=== PATIENT | female | born 1930 | race Hispanic/Latino ===

== ENCOUNTER 2017-04-30 19:53 | Inpatient (IN) | payer MEDICARE, MEDICAID ==
[~2017-04-30] VITALS: Ht 124.5 cm; Wt 70.3 kg
[~2017-04-30 19:53] MED LIST: AMLO10TA3 PO; ASPI325T32 PO; ATEN25TA PO; BACL10TA PO; CHOL100043 PO; DULO20CA PO; FENT1PAT7 TOP; GABA-502 PO; LISI40TA PO; METF10002 PO; MULT-1018 PO; NITR0.4T38 SL; OMEP-113 PO; PRAV20TA2 PO; TIZA4CAP8 PO
[2017-04-30 20:19] VITALS: BP 161/74; PULSE 93; RESP 16; O2SAT 99
[2017-04-30] MEDS ORDERED: 0.9% Sodium Chloride 1,000 ML IV ONE ×2 (20:29→22:00)
[2017-04-30] MEDS ORDERED: Ondansetron 2 mg/mL 2 mL Inj IVPUSH ONE (20:30)
[2017-04-30] MEDS ORDERED: HYDROmorphone 0.5 mg/0.5 mL iSecure Syringe IVPUSH PRN (20:30)
[2017-04-30 21:08] LABS: BASOPHILS % (AUTO) 0.2 % (0-3); EOSINOPHILS % (AUTO) 2.5 % (0-5); MONOCYTES % (AUTO) 4.8 % (4-12); Mean Corpuscular Hemoglobin 26.1 pg (27.0-35.0); Mean Corpuscular Volume 82.3 fL (81-100); NEUTROPHILS % (AUTO) 66.5 % (40-74); Platelet Count 294 bil/L (150-400)
[2017-04-30 21:23] LABS: INR 1.05 ratio
[2017-04-30 21:36] LABS: Magnesium 1.9 mg/dL (1.6-2.6)
[2017-04-30 21:37] LABS: APPEARANCE,URINE CLOUDY (CLEAR,HAZY); COLOR,URINE STRAW (YELLOW); OCCULT BLOOD,URINE SMALL (NEGATIVE); PH,URINE 5.5 (5.0-8.0)
[2017-04-30 21:38] LABS: UROBILINOGEN,URINE NORMAL (NORMAL)
[2017-04-30] MEDS ORDERED: Alum-Mag Hydrox-Simeth 30 mL Suspension PO PRN (22:00)
[2017-04-30] MEDS ORDERED: cefTRIAXone Inj 1,000 MG in Dextrose 5% Minibag Plus 50 ML IV ONE (22:00)
--- NOTE | 2017-04-30 22:09 | ED.REPORT ---
HPI-General Illness Date of Service Apr 30, 2017 ED Provider: Saud Pryor MD Pt is an 87 year old female with a hx of DM, and HTN presenting to the ED complaining of abdominal cramping and bloating onset a few days ago, worsened yesterday. Associated symptoms include subjective fever, chills, diaphoresis and diarrhea. Denies dysuria, increased urination, vomiting, SOB or cough. Pt denies hx of abd surgery. Pt lives in her own apartment but her daughter cares for her. Nursing Notes Stated Complaint: ABDOMINAL PAIN, DIARRHEA, CHILLS, HEADACHE/FROM UC Chief Complaint: General Complaint Nursing Notes Reviewed: Yes Allergies: Coded Allergies: No Known Allergies (Verified , 04/30/17) Scheduled Amlodipine (Amlodipine) 10 Mg Tablet 10 MG PO NOON Aspirin (Aspirin) 325 Mg Tablet.dr 325 MG PO PM Atorvastatin Calcium (Atorvastatin Calcium) 20 Mg Tablet 20 MG PO HS Carvedilol (Carvedilol) 12.5 Mg Tablet 12.5 MG PO BIDWM Cholecalciferol (Vitamin D3) (Vitamin D) 1,000 Unit Tablet 2,000 UNIT PO AM Cyanocobalamin (Cyanocobalamin Injection) 1,000 Mcg/1 Ml Vial 1,000 MCG IM Monthly Duloxetine (Cymbalta) 30 Mg Capsule.dr 30 MG PO DAILY Gabapentin (Gabapentin) 300 Mg Capsule 600 MG PO AM, NOON Gabapentin (Gabapentin) 300 Mg Capsule 900 MG PO HS Lidocaine (Lidoderm) 700 Mg Adh..patch 1 PATCH TP DAILY Lisinopril (Lisinopril) 40 Mg Tablet 40 MG PO DAILY Lisinopril (Lisinopril) 20 Mg Tablet 20 MG PO HS Metformin (Metformin) 1,000 Mg Tablet 1,000 MG PO BIDWM Scheduled PRN Nitroglycerin SL (Nitroglycerin SL) 0.4 Mg Tab.subl 0.4 MG SL PRN PRN PRN For Chest Pain oxyCODONE-Acetaminophen 5-325 mg (oxyCODONE-Acetaminophen 5-325 mg) 1 Each Tablet 1-2 TAB PO BID PRN PRN For Pain General Time Seen by MD: 20:29 Chief Complaint Abdominal pain Hx Obtained From: Patient Arrived By: Walk-in Sudden in Onset?: No Onset Occurred: 3 days ago Symptom Duration: Since onset Location: : Abdomen Severity: Current: Moderate Severity: Maximum: Severe Recent Healthcare: No recent doctor visit, No recent hospitalization Similar Sx Previous: No Past Medical History Past Medical History Reports: Diabetes mellitus, Hypertension Past Surgical History bilateral lower leg amputation Smoking History Former Smoker Ambulatory Status Independent Review of Systems Full Review of Systems Constitutional: Reports: Chills, Fever Respiratory: Reports: Non-productive cough, Denies: Shortness of breath GI: Reports: Abdominal pain, Diarrhea, Denies: Vomiting Female: Denies: Dysuria, Urinary frequency Skin: Reports Diaphoresis Complete sys rev & neg: except as marked. Physical Exam Vital Signs Vital Signs Date Time Temp Pulse Resp B/P Pulse Ox O2 Delivery O2 Flow Rate FiO2 04/30/17 20:19 36.8 93 16 161/74 99 Room Air Initial VS: Reviewed General/Constitutional: Well-developed, Well-nourished ENT: Mucous membranes moist, Conjunctiva normal, No scleral icterus Neck: Supple, Non-tender, Full range of motion Respiratory: Breath sounds normal, Clear to auscultation, No respiratory distress Cardiovascular: Regular rate & rhythm, Heart sounds normal, Intact distal pulses Extremities: Vascular intact, Neuro intact, No swelling, No tenderness Skin: Warm, Dry, No cyanosis Neurologic: Alert, Oriented, Nonfocal Psychiatric: Mood/affect normal, Behavior normal, Normal thought content Head / Eyes: Atraumatic, Normocephalic, PERRL (3mm), EOMI Abdomen: Atraumatic, Soft, Non-tender Bowel Sounds / Distention: Positive: Distention mild Interpretation & Diagnostics Lab Results Interpretation Result Diagram: 04/30/17210404/30/17 210 Test 04/30/17 21:05 04/30/17 21:15 White Blood Count 10.0th/mm3 (3.8-10.1) Red Blood Count 3.10mil/mm3 (3.90-5.20) Hemoglobin 8.1g/dL (12.0-15.6) Hematocrit 25.5% (35.0-46.0) Mean Corpuscular Volume 82.3fL (81-100) Mean Corpuscular Hemoglobin 26.1pg (27.0-35.0) Mean Corpuscular Hemoglobin Concent 31.8% (32.0-37.0) Red Cell Distribution Width 15.2% (12.3-15.4) Platelet Count 294bil/L (150-400) Neutrophils (%) (Auto) 66.5% (40-74) Lymphocytes (%) (Auto) 25.8% (14-46) Monocytes (%) (Auto) 4.8% (4-12) Eosinophils (%) (Auto) 2.5% (0-5) Basophils (%) (Auto) 0.2% (0-3) Prothrombin Time 11.3sec (8.1-12.5) Prothromb Time International Ratio 1.05ratio Sodium Level 134mEq/L (134-144) Potassium Level 5.1mEq/L (3.5-5.2) Chloride Level 98mEq/L (97-108) Carbon Dioxide Level 18mmol/L (18-29) Blood Urea Nitrogen 88mg/dL (8-27) Creatinine 1.29mg/dL (0.57-1.00) Estimat Glomerular Filtration Rate 56mL/min (>59) Glucose Level 206mg/dL (60-99) Calcium Level 8.6mg/dL (8.5-10.1) Magnesium Level 1.9mg/dL (1.6-2.6) Total Bilirubin 0.2mg/dL (0.0-1.2) Aspartate Amino Transf (AST/SGOT) 11U/L (0-50) Alanine Aminotransferase (ALT/SGPT) 8U/L (0-32) Alkaline Phosphatase 95U/L (25-165) Total Protein 7.2g/dL (6.4-8.4) Albumin 3.4g/dL (3.4-5.0) Lipase 66U/L (13-60) Hold Vickers Top Tube Received (Received) Urine Color Straw (YELLOW) Urine Appearance Cloudy (CLEAR,HAZY) Urine pH 5.5 (5.0-8.0) Urine Specific [place] 1.020 (1.003-1.035) Urine Protein 100mg/dL (NEG,TRACE) Urine Glucose (UA) Negativemg/dL (NEGATIVE) Urine Ketones Negativemg/dL (NEGATIVE) Urine Occult Blood Small (NEGATIVE) Urine Nitrite Positive (NEGATIVE) Urine Bilirubin Negative (NEGATIVE) Urine Urobilinogen Normalmg/dL (NORMAL) Urine Leukocyte Esterase Moderate (NEGATIVE) Urine RBC 0-2/hpf (0-2) Urine WBC 6-10/hpf (0-5) Urine Epithelial Cells Few/hpf (NONE-MOD) Urine Crystals None seen (NONE SEEN) Urine Bacteria Many/hpf (NONE-FEW) Urine Hyaline Casts None/lpf (NONE) Urine Granular Casts None seen (NONE SEEN) Urine Waxy Casts None seen (NONE SEEN) Urine Red Blood Cell Casts None seen (NONE SEEN) Urine White Blood Cell Casts None seen (NONE SEEN) Urine Mucus None seen (None Seen) Urine Trichomonas None seen (NONE SEEN) Urine Yeast None (NONE SEEN) Urinalysis Comment None Urine Culture Reflexed Indicated CT Abd / Pelvis Interpretation CONCLUSION: Diverticula without evidence of diverticulitis. Nonobstructing renal stones bilaterally. This report was transmitted to the emergency room at 04/30/2017 - 10:34:23 PM PDT. Study type: Abdominal CT no contrast Interpretation / Wet Read by: Interpret - Radiologist Re-Eval/Medical Decision Med Decision/Clinical Course The patient is an 87-year-old female who presents to the emergency department with multiple vague complaints including abdominal cramping, bloating, diarrhea and fatigue over the last several days. Here in the emergency department the patient is slightly hypertensive though otherwise afebrile with stable vital signs and examination as above. Laboratory studies were notable as below: Urine dip shows 2+ leukocytes, positive nitrites and large blood. CBC no leukocytosis, hematocrit 25.5 which is down from previous baseline in low 30s. Coags normal. CMP notable for acute renal failure with BUN of 88 and creatinine of 1.29 this is new onset. No significant electrolyte abnormalities. Lipase 66. CT scan of the abdomen and pelvis was obtained demonstrated no evidence of bowel obstruction or acute surgical process. The patient appeared quite dehydrated and is noted to have urinary tract infection. She was treated with IV ceftriaxone for her UTI and received 2 L of saline. Patient is noted to have evidence of acute renal failure and cause thereof is not completely clear at this time. This may be related to her profound dehydration though he will likely require further workup especially if it does not improve with fluid resuscitation. Patient is also noted to have decreasing hematocrit. She denies any melena or bloody stool. The etiology of her progressive anemia is unclear or require further investigation. The patient was discussed with the admitting hospitalist accepted for further management. She was transferred in stable condition. Time of Eval: 22:20 Patient Status: Condition improved Re-Evaluation/Progress Note: Discussed plan for admission. Pt understands and agrees. Consultation : Referral / Consult Name: Yudelka Ruiz DO Consulted With: Hospitalist Call Returned at: 22:52 Marine Steward: Will see patient, Agrees with plan, Accepts admit Counseled Regarding: Diagnosis, Lab results, Need for admission Discharge & Departure Primary Impression: Acute renal failure Acute renal failure type: unspecified Qualified Code: N17.9 - Acute kidney failure, unspecified Additional Impressions: UTI (urinary tract infection) Urinary tract infection type: site unspecified Hematuria presence: without hematuria Qualified Code: N39.0 - Urinary tract infection, site not specified Anemia Anemia type: unspecified type Qualified Code: D64.9 - Anemia, unspecified Severe dehydration Abdominal pain Abdominal location: unspecified location Qualified Code: R10.9 - Unspecified abdominal pain Diarrhea Diarrhea type: unspecified type Qualified Code: R19.7 - Diarrhea, unspecified Hypertension Hypertension type: unspecified secondary hypertension Qualified Code: I15.9 - Secondary hypertension, unspecified Disposition: ADMITTED TO HOSPITAL Discharge Condition All VS Reviewed: Yes Condition: Improved Referrals: Amirah Edouard MD (PCP) Crit Care Except Billable Proc Time Spent: 105-134 minutes Services Performed: Patient management by me, Time spent at bedside, Reviewing test results, Reviewing imaging, Discussing patient care, Documentation in record, Time with fam/surrogate Critical Care Notes: Severe dehydration, acute renal failure, volume resuscitation Scribe Attestation Portions of this note were transcribed by Caty Wong. I, Dr. Pryor personally performed the history, physical exam and medical decision-making; I reviewed and confirmed the accuracy of the information in the transcribed note. Signed by: Sarah Foster, 04/30/2017. copies to: Amirah Edouard MD, Beck O MD Apr 30, 2017 22:09 CATY WONG Apr 30, 2017 22:25
[2017-04-30] MEDS ORDERED: ATOR20TA65 PO (22:58)
[2017-04-30] MEDS ORDERED: OXYC1TAB24 PO (22:58)
[2017-04-30] MEDS ORDERED: CYA1000I IM (22:58)
[2017-04-30] MEDS ORDERED: DULO30CA PO (22:58)
[2017-04-30] MEDS ORDERED: LIDO700A10 TP (22:58)
[2017-04-30] MEDS ORDERED: CARV12.52 PO (22:58)
[2017-04-30] MEDS ORDERED: LISI-567 PO (22:58)
[2017-04-30] MEDS: Ondansetron 2 mg/mL 2 mL Inj IVPUSH PRN (23:19)
[2017-05-01] VITALS (16 sets, daily range): BP systolic 132–170; BP diastolic 59–83; PULSE 83–113; RESP 9–24; O2SAT 94–99
--- NOTE | 2017-05-01 01:12 | PCM.HPMED ---
Subjective Date of Service Apr 30, 2017 Primary Provider: Admitting Physician: Yudelka Ruiz DO Primary Care Physician: Amirah Edouard MD Attending Physician: Yudelka Ruiz DO Admit Status: From the Emergency Department Chief Complaint: Abdominal Pain History of Present Illness: Patient is an 87-year-old female that presented to the emergency department complaining of abdominal cramping and bloating that started a few days ago and worsened yesterday. She has a history of diabetes and hypertension. History was obtained from the patient and translated by the nurse, Purnima and with outpatient chart review Patient states that she developed generalized abdominal pain on Friday (6 days ago) which worsened yesterday. It has since improved with an increase in water consumption. She also admits to 3 episodes of diarrhea yesterday and 2 today. She states that the diarrhea is improving. Patient reports previous UTI several years ago. She states that she did not drink much water the day before symptoms started. Patient admits subjective fever, chills, diaphoresis, diarrhea, and nausea Patient denies dysuria, increased urination, vomiting, shortness of breath, hematochezia Review of Systems: Complete ROS was performed and pertinent positives and negatives included in the history of present illness. All other findings were negative. Allergies Coded Allergies: No Known Allergies (Verified , 04/30/17) Home Medications Amlodipine (Amlodipine) 10 Mg Tablet 10 MG PO NOON Aspirin (Aspirin) 325 Mg Tablet. 325 MG PO PM Atenolol (Atenolol) 25 Mg Tablet 25 MG PO BID Baclofen (Baclofen) 10 Mg Tablet 5 MG PO TID Cholecalciferol (Vitamin D3) (Vitamin D) 1,000 Unit Tablet 2,000 UNIT PO AM Duloxetine (Cymbalta) 20 Mg Capsule 20 MG PO AM Fentanyl 25 mcg/hr Patch (Fentanyl 25 mcg/hr Patch) 1 Each Patch.td72 1 EACH TOP Q3D Gabapentin (Gabapentin) 300 Mg Capsule 600 MG PO AM, NOON Gabapentin (Gabapentin) 300 Mg Capsule 900 MG PO HS Lisinopril (Lisinopril) 40 Mg Tablet 40 MG PO BID Metformin (Metformin) 1,000 Mg Tablet 1,000 MG PO BIDWM Multivitamin (Multi Vitamin Daily) 1 Each Tablet 1 EACH PO NOON Omeprazole Magnesium (Omeprazole) 20 Mg Capsule.dr 20 MG PO PM Pravastatin (Pravastatin) 20 Mg Tablet 20 MG PO PM Nitroglycerin SL (Nitroglycerin SL) 0.4 Mg Tab.subl 0.4 MG SL PRN PRN PRN For Chest Pain Tizanidine (Tizanidine) 4 Mg Capsule 4 MG PO Q8 PRN PRN For Pain PMH 1. Diabetes type II, with bilateral lower leg amputation 2. Hypertension 3. Angina 4. Iron deficiency anemia, chronic 5. Chronic kidney disease Surgical History 1. Bilateral lower leg amputation Family History Extensive family history of kidney disease and diabetes Social History Hx Alcohol Use: No Hx Substance Use: No Hx Tobacco Use: No Smoking Status: Former Smoker Living Arrangement: Other (independent with aid from her daughter) Exam Vital Signs Vital Sign - Last Date Time Temp Pulse Resp B/P Pulse Ox O2 Delivery O2 Flow Rate FiO2 04/30/17 20:19 36.8 93 16 161/74 99 Room Air Exam General: Nondistressed, well-developed well-nourished obese female HEENT: NC/AT, PERRLA, EOM intact. Nontender sinuses, no nasal discharge. Good dentation, no erythema, nor exudate present in oropharynx. No thyromegaly appreciated. CV: Regular rate and rhythm, 1/6 holosystolic murmur RESP: Clear to auscultation bilaterally, no wheezes or rhonchi appreciated ABD: Bowel sounds normal, nondistended, nontender to palpation. : Suprapubic nontender to palpation, no CVA tenderness EXT: Bilateral below the knee amputation. No swelling or edema appreciated LYMPH: No cervical or axillary adenopathy appreciated NEURO: Symmetric face, cranial nerves grossly intact, strength intact bilaterally upper and lower extremitie, sensation to light touch intact bilaterally upper and lower extremities. PSYCH: Oriented 4. Linear and appropriate conversation. Skin: No rashes or ecchymosis appreciated Lab and Diagnostics Result Diagram: 04/30/17210404/30/172104 Assessment & Plan Patient is an 87-year-old female that presents with urinary tract infection and abdominal pain. She has a history of poorly controlled diabetes, chronic kidney disease, 1. UTI, present upon admission and ongoing -UA positive for blood, nitrites, and leuk -Received one dose of Ceftriaxone in ED -Continue Ceftriaxone, 1 g IV daily 2. Abdominal pain, present upon admission and improving -Patient reports improving diarrhea. -Abdominal CT shows some stool burden, this may be the cause of diarrhea -Bowel prep, senna and Dulcolax 3. Anemia, present upon admission and ongoing -Up on outpatient chart review, this is a known iron deficiency anemia -Recommend high iron foods, consider starting iron supplementation outpatient 4. Chronic kidney disease, present upon admission and chronic - Disease stage 3 - Cr on admission is 1.29. Baseline Cr is 1.3 found in February 2017 outpatient labs. - GFR on admission is 56. Baseline GFR of 37 found in February 2017 outpatient labs. - Avoid nephrotoxic medications - NS @ 100 ml/hr 5. Angina, present upon admission and chronic - Patient denies a diagnosis of angina but admits to chest pain improved with nitroglycerin - Continue home medication of nitroglycerin Patient has been admitted as observation, I expect her to spend less than 2 midnights in the hospital Pain Evaluation: Adequate Pain Control GI Prophylaxis: Proton Pump Inhibitor VTE Prophylaxis: Sub-Q Heparin (Unfractionated) Resuscitation Status: CPR: Attempt Resuscitation Attending Statement The patient was seen and examined together with house staff on 04/30/2017 and I agree with the history, exam and plan as outlined in the note above. Nilam Charles DO Apr 30, 2017 23:29 Yudelka Ruiz DO May 01, 2017 05:07
[2017-05-01] MEDS: 0.9% Sodium Chloride 1,000 ML IV SCH ×3 (01:22→20:31)
--- NOTE | 2017-05-01 02:08 | NUR ---
ADMIT: Pt. arrived to [facility] from the ED via gurney, two family members with arrived with Pt., they left shortly after arrival to [facility]. Pt. is awake, alert and able to answer questions appropriately, was able to transfer to her W/C with one person assist, went to the bathroom to void. She had a BM later on [facility]. Khmer speaking only. IV on the left AC with NS at TKO patent. Pt. is a bilateral BKA, she is able to transfer to her own W/C and to the BS with one person assist. She states that it is impossible for her to have a BM using a bed bustamante. Pt. states she lives independent in her own apartment but her daughter lives near by and checks up on her frequently she also takes care of all her medications every day. Dr. Gutierrez came in to see Pt. shortly after arrival. New orders for NS at 100 ml/hr. Remote Telemetry. A & O, vss. On going care.
[2017-05-01] MEDS: oxyCODONE-Acetamin 5-325 mg Tablet PO PRN ×2 (05:27→18:48)
[2017-05-01] MEDS ORDERED: Pantoprazole 20 mg ER24 Tablet PO SCH (06:30)
[2017-05-01] MEDS ORDERED: Lidocaine Topical 5% Patch TOPICAL SCH (08:30)
[2017-05-01] MEDS ORDERED: Heparin 5,000 Unit/mL Inj SUBQ SCH (08:30)
--- NOTE | 2017-05-01 08:41 | DRSVH ---
PROCEDURE: CT ABDOMEN AND PELVIS WITHOUT CONTRAST ([id number]) INDICATIONS: abd pain TECHNIQUE: Noncontrast 5 mm thick sections acquired from the diaphragms to the symphysis. 5 mm coronal and sagi ttal reformats were then performed. For radiation dose reduction, the following was used: automated exposure control, adjustment of mA and/or kV according to patient size. COMPARISON: CT, ABDOMEN W CONTRAST, 03/19/2010, 8:27. FINDINGS: Image quality: Excellent. ABDOMEN: Lung bases: Dependent atelectasis noted in the lung bases. Visualized heart is enlarged. Atherosclero tic calcifications noted in the visualized coronary vasculature. Solid organs: Liver and spleen are normal in size. Gallbladder is surgically absent.. Pancreas is normal in contours. No adrenal nodules. Kidneys are mildly atrophied. Bilateral renal cysts are not ed. Multiple, bilateral, approximately 1-3 mm in diameter nonobstructing renal stones are noted. No h ydronephrosis. Peritoneum and bowel: Small hiatal hernia is noted. Cystic lesion is noted adjacent to the posterior margin of the left hemidiaphragm adjacent to the spleen which is not significantly changed compared to 03/19/2000 and likely represents a benign process. Unenhanced bowel loops demonstrate normal wall t hickness and caliber. Scattered diverticula noted in the colon without evidence of diverticulitis. N o free fluid or air. The appendix is normal. Nodes and vessels: Prominent paraesophageal lymph nodes noted proximal to the gastroesophageal junct ion which do not meet size criteria and are which are stable in appearance compared to 03/19/2010.. No retroperitoneal or mesenteric adenopathy by size criteria. Aorta and inferior vena cava are normal in caliber. Scattered atherosclerotic calcifications noted in the abdominal pelvic vasculature. A vas cular stent is noted in the lower extremities bilaterally. Miscellaneous: No ventral hernias. PELVIS: Genitourinary: Bladder wall thickness is normal. Calcifications noted in the uterus possibly related to fibroids. Miscellaneous: No inguinal hernias or adenopathy. Bones: No suspicious bony lesions. No vertebral body compression fractures. Postsurgical changes co mpatible with ORIF of right femur fracture noted. Spine degenerative disc disease and facet arthropat hy. IMPRESSION: 1. No acute disease process. 2. Colonic diverticulosis without evidence of diverticulitis. 3. Nonobstructing bilateral renal stones. 4. Bilateral renal atrophy. Please correlate with clinical laboratory data to exclude chronic renal d isease. 5. Atherosclerosis including the coronary vasculature. 6. Cardiomegaly. Dictated by: Karrie Weiss MD, PhD on 05/01/2017 at 8:25 Approved by: Karrie Weiss MD, PhD on 05/01/2017 at 8:40
[2017-05-01] MEDS: DULoxetine 30 mg DR Capsule PO SCH (09:25)
[2017-05-01] MEDS: Senna-Docusate 8.6-50 mg Tablet PO SCH ×2 (09:25→20:42)
[2017-05-01] MEDS ORDERED: Glucose 40% Oral Gel 15 Gm Tube PO PRN (09:55)
--- NOTE | 2017-05-01 10:13 | NUR ---
Case Management: ANITRA delivered and explained via hospital shipwright helper. Signed original placed in chart. Copy left at bedside. Thanks, Karie Romero RN
[2017-05-01] MEDS: cefTRIAXone Inj 1,000 MG in Dextrose 5% Minibag Plus 50 ML IV SCH (11:18)
[2017-05-01] MEDS: Insulin LISPRO 300 Unit/3 mL Inj SUBQ SCH ×3 (12:26→23:30)
--- NOTE | 2017-05-01 15:11 | PCM.PNMED ---
Subjective Date of Service May 01, 2017 Subjective Patient is complaining of mid abdominal pain. she has no hematochezia or hematemesis. She never had a colonoscopy. She denies having prior transfusions. 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 Patient lives with her daughter who is also her alternate decision- maker. Interview was done with the help of online ring barker operator. I have discussed case extensively with her daughter, who is Ukrainian-speaking. Daughter consented for blood Transfusions.Discussed diagnosis, workup, imaging, and treatment plan with daughter. They expressed an verbalized their understanding. Exam Vital Signs Vital Sign - Last Date Time Temp Pulse Resp B/P Pulse Ox O2 Delivery O2 Flow Rate FiO2 05/01/17 12:30 105 147/76 05/01/17 09:02 36.7 18 95 Room Air Intake and Output 04/30/17 04/30/17 05/01/17 Cumulative From/Thru 15:00 23:00 07:00 04/30/17 20:19 - 05/01/17 05:40 Intake Total 2000 ml 672 ml 2672 ml Output Total 1300 ml 1300 ml Balance 2000 ml -628 ml 1372 ml Intake Oral 270 ml 270 ml IV Total 2000 ml 402 ml 2402 ml Output Urine Total 1300 ml 1300 ml # Bowel Movements 2 2 Exam Gen.: Moderate distress excellent HEENT: Normocephalic, atraumatic Neck trachea is central no JVD Heart: Regular rate and rhythm since murmurs Lungs are clear to auscultation anteriorly no crackles or wheezes Abdomen: Obese soft, nondistended, normal bowel sounds, mild tenderness to palpation mid to late abdomen round and medical area Extremities: Missing lower extremities status post amputation Neurological no focal deficits Psych: Mildly Anxious IVs and Medications IV Fluids NSS 100 mL per hour Medications Reviewed: Medications were reviewed in detail Lab and Diagnostics Result Diagram: 05/01/17 1000 05/01/17 0609 Microbiology Microbiology ELO CULT URINE Preliminary 05/01/17-825 PRELIMINARY ID GRAM NEG DONNY, PROBABLE E COLI SUSCEPTIBILITIES TO FOLLOW COLONY COUNT/QUANTITY >100,000 CFU/ml Assessment & Plan Patient is an 87-year-old female that presents with urinary tract infection and abdominal pain. She has a history of poorly controlled diabetes, chronic kidney disease, Symptomatic anemia secondary to iron deficiency and acute blood loss acute -- Patient has a history of iron deficiency anemia, was identified and supplementation at home -- Discontinue heparin subcutaneous -- Upon admission her hemoglobin was 8->5.7->4.9 -- Patient never had a colonoscopy, stool guaiac was positive in the room -- GI was consulted, Dr. Ralph has seen the patient, the plan to do double scope tomorrow a.m. if hemoglobin remains stable -- Blood transfusion was ordered but was held due to concern for K antibody, as well as autoantibodies. Lab was able to cross one unit for anti-K, they sent the sample to a [place] lab for autoantibodies testing, waiting for antigen screened blood. Around 6 PM [place] lab called our lab saying that we could transfuse one unit they had already crossmatched, with the understanding that this is an emergent requirement under the discretion of a physician. Discussed case with Dr. Danny Golden, he recommends pre-medicating the patient with 50 mg IV hydrocortisone, 20 mg of Benadryl IV 15 minutes prior to transfusion and go ahead with transfusion as pt does not have any thing else available. This has been ordered. -- I have tried transferring pt to [facility] and they did not have MICU bed available. -- Patient has been worked up critical-care due to concern for active drop in hemoglobin, critical-care unit staff as well as night hospitalist were briefed. F/U H&H after one hr after transfusion. -- NPO after midnight Urine retention acute on chronic, POA -- The patient was bladder scanned for 750 cc, 900 cc were straight catheter by nursing -- Cont to treat constipation with miralax and senna. -- Patient stated that her bloating and abdominal pain have completely resolved after straight cath -- Bladder Scan Q6H and straight cath if > 350 cc retention Elevated BUN acute present on admission -- Likely secondary to GI bleed versus less likely prerenal azotemia -- Has baseline CKD3 -- Nephrotoxic medications, urine eosinophils, serum phosphorus, mag, uric acid levels are ordered -- Ultrasound of kidneys is ordered -- Dr. Mancia from nephrology is consulted, he will see the patient in the a.m. UTI, present upon admission and improving -UA positive for blood, nitrites, and leuk culture grew gram-negative rods> 100, 000 CFU -Received one dose of Ceftriaxone in ED -Continue Ceftriaxone, 1 g IV daily -- Follow culture sensitivities Chronic kidney disease, present upon admission and chronic - Disease stage 3 - Cr on admission is 1.29. Baseline Cr is 1.3 found in February 2017 outpatient labs. - GFR on admission is 56. Baseline GFR of 37 found in February 2017 outpatient labs. - Avoid nephrotoxic medications - NS @ 100 ml/hr Angina, present upon admission and chronic - Patient denies a diagnosis of angina but admits to chest pain improved with nitroglycerin - Continue home medication of nitroglycerin Elevated lipase present on admission acute -- Patient's lipase is elevated at 66 on admission, likely from the acute kidney injury -- Continue to monitor Chronic CAD symptoms stable -- Continue Coreg, atorvastatin Chronic hypertension presumed stable -- Continue home medication amlodipine Chronic diabetes mellitus presumed stable -- Sliding-scale insulin low Chronic peripheral neuropathy presumed stable -- Continue gabapentin and duloxetine Patient is admitted under observation status. Consider changing patient to inpatient as she has definitely a lot of problems, comorbidities and complexities therefore remained in the hospital for greater than 2 days Pain Evaluation: Pain not Controlled GI Prophylaxis: Proton Pump Inhibitor VTE Prophylaxis: Sub-Q Heparin (Unfractionated) Resuscitation Status: CPR: Attempt Resuscitation Time spent 1 hr Shelley Hardy DO May 01, 2017 15:11
--- NOTE | 2017-05-01 15:41 | NUR ---
Urinary Retention Pt unable to void. Bladder scan showed 758cc. Notified. Straight cathed pt with 900cc out. Will continue to monitor.
[2017-05-01 15:42] LABS: Unsaturated Iron Binding 181.3 ug/dL
[2017-05-01 15:54] LABS: Magnesium 1.7 mg/dL (1.6-2.6); Phosphorus 2.8 mg/dL (2.5-4.9)
--- NOTE | 2017-05-01 17:15 | DRSVH ---
PROCEDURE: US RENAL SONOGRAM INDICATIONS: elevated BUN TECHNIQUE: Real-time scanning was performed of the kidneys and bladder, with image documentation. COMPARISON: None. FINDINGS: Kidneys: Right kidney measures 9 cm long; left kidney measures 8.2 cm long. Right renal cortical th ickness is 1.2 cm; left renal cortical thickness is 0.8 cm. there is preserve renal cortical medullar y differentiation although there is slightly increased echogenicity of the renal cortices. No hydron ephrosis. There is an exophytic cyst in the left kidney measuring up to 2.1 cm. There is calcificat ion suggestive of a nonobstructing stone in the lower pole of the right kidney measuring up to approx imately 0.6 cm. Bladder: Nondistended with a Gamez catheter in place. Miscellaneous: No free pelvic fluid. IMPRESSION: 1. No evidence of hydronephrosis. 2. Slightly increased renal cortical echogenicity suggesting medical renal disease. 3. Probable small nonobstructing stone in the right kidney. Dictated by: Ronn Greenwood M.D. on 05/01/2017 at 17:11 Approved by: Ronn Greenwood M.D. on 05/01/2017 at 17:13
--- NOTE | 2017-05-01 17:17 | NUR ---
Social Work- Initial Assessment/Multidisciplinary Rounds Data: See Initial Assessment for additional information. Pt is a 87 year old female admitted on 04-30-17 for acute renal failure, UTI. Pt's insurance is [employer] and [employer]. Pt's PCP is Amirah Edouard MD. Pt's readmit risk score not entered at this time. Pt discussed in multidisciplinary rounds, pt to be hospitalized for 2-3 more days. SW met with pt and daughter Malou at bedside with the assistance of an conference interpreter regarding discharge planning. Pt alert and oriented x3. Pt resides in [place] alone. Pt uses a wheelchair at baseline. Pt reports that she is sometimes independent with transfers. Pt's daughter Malou is sales assistants and salespersons for discharge planning. Pt's daughter speaks Turkmen as well as Iraqi. Pt has history of HH, she thinks through [employer]. Pt has history of [facility]. Pt has no LTC or VA benefits. Pt does not drive. Pt has ANGEL at home, 158 hours each month. ABISAI Benitez. [facility] to fax H&P tomorrow. Pt to transfer up to second floor, report given to [employer] INDUSTRIAL TWISTING MACHINE OPERATOR. SW will continue to follow for d/c planning needs. Assessment: Pt who is wheelchair bound and who is not capable of self-care, requiring caregivers at home. Plan: Evolving; Pt has good family support. Pt has ANGEL caregiving. SW will continue to follow for d/c planning needs as needs arise. Ary Slater MSW Addendum: 05/01/17 at 1723 by KILEY SLATER Amended: Links added.
--- NOTE | 2017-05-01 17:30 | NUR ---
Chest pain Upon afternoon assessment pt had no c/o pain. Upon MD assessment pt had c/o chest pain. RN reassessed pt and pt stated that she sometimes gets pain in her chest, and that when she takes some deep breaths it resolves. Pt stated that her chest pain she had earlier was resolved. Pt declined any medications. MD notified.
--- NOTE | 2017-05-01 18:18 | PCM.CHPMED ---
Subjective Date of Service: May 01, 2017 Provider requesting consult: Shelley Hardy DO Primary Physician: Admitting Physician: Yudelka Ruiz DO Primary Care Physician: Amirah Edouard MD Attending Physician: Shelley Hardy DO Admit Status: From the Emergency Department Chief Complaint: Chief Complaint: ABDOMINAL PAIN- GI consulted for hematochezia and no prior colonoscopy History of Present Illness: GASTROENTEROLOGY CONSULT: Attending Physician: Bang Ralph MD Resident Physician: Cindi Singleton DO Karo Bernard is an 87-year-old woman with a history of uncontrolled diabetes type 2, chronic kidney disease, hypertension, chronic iron deficiency anemia, and bilateral BKA who presented to the ED with the complaint of abdominal cramping and diarrhea for the last few days. She is somewhat of a poor historian and history obtained from patient and her daughter via coroner/medical examiner as well as chart review. At the time of my assessment the patient denies abdominal pain and states that the reason she came in was for abdominal bloating. She reports decreased appetite, fatigue, generalized weakness, and 2- 3 episodes of diarrhea that were associated with diaphoresis and reportedly nonbloody. She denies a history of similar symptoms in the past and states that she was recently started on supplemental iron by her PCP for anemia. Around that same time FOBT was done but the daughter states she never heard the results. Additionally she states that she had been taking omeprazole for a long time but this was also discontinued recently. Her main complaint at this time is chest pain that does not radiate but is associated with a headache. She denies urinary symptoms, fever, chills, nausea, vomiting, and shortness of breath. At presentation to the emergency department she was afebrile, hypertensive (161/ 76), and mildly tachycardic at times with a heart rate in low 100s. Her oxygen sats were 94-99% on room air with a respiratory rate of 16. UA was consistent with infection and culture has since grown E. coli. CBC was significant for normocytic anemia with H/H of 8.1/25.5 and a normal white blood cell count, platelets, and PT/INR. However, patient's H/H has dropped significantly since admission; most recently Hb 4.9/15.6 without obvious bleeding. Bedside stool guiaiac is positive. CMP significant for elevated BUN of 88 and Creatinine of 1.29 with a BUN/Cr ratio of 72.8. Her apparent baseline Creatinine and GFR based on outpatient labs in February 2017 are as follows: Cr 1.3, GFR 37. LFTs are within normal limits and lipase mildly elevated at 66. Cardiac enzymes were not ordered at presentation and are now pending. She was however started on heparin for DVT prophylaxis and this has been discontinued. CT Abd and pelvis showed diverticula without evidence of diverticulitis and nonobstructing renal stones bilaterally. Review of Systems: A comprehensive review of systems was conducted with the patient and found to be negative except as above in the History of Present Illness PMH Past Medical History Diabetes type II, with bilateral lower leg amputation Hypertension Iron deficiency anemia, chronic Chronic kidney disease Bedside Blood Glucose: 255 Surgical History Bilateral lower leg amputation Home Medications Amlodipine 10 MG PO NOON Aspirin 325 MG PO PM Atenolol 25 MG PO BID Baclofen 5 MG PO TID Cholecalciferol 2,000 UNIT PO AM Duloxetine 20 MG PO AM Fentanyl 25 mcg/hr Patch 1 EACH TOP Q3D Gabapentin 600 MG PO AM, NOON Gabapentin 900 MG PO HS Lisinopril 40 MG PO BID Metformin 1,000 MG PO BIDWM Multivitamin 1 EACH PO NOON Omeprazole 20 MG PO PM Pravastatin 20 MG PO PM Nitroglycerin SL 0.4 MG SL PRN For Chest Pain Tizanidine4 MG PO Q8 PRN For Pain Allergies: Coded Allergies: No Known Allergies (Verified , 04/30/17) Family History Family History Extensive family history of kidney disease and diabetes Social History Hx Alcohol Use: NoHx Substance Use: NoHx Tobacco Use: No Smoking Status: Former Smoker Living Arrangement: with Family Other (independent with aid from her daughter) Additional Information Patient lives in her own apartment but her daughter cares for her. Exam Vital Signs Vital Sign - Last Date Time Temp Pulse Resp B/P Pulse Ox O2 Delivery O2 Flow Rate FiO2 05/01/17 12:30 105 147/76 05/01/17 09:02 36.7 18 95 Room Air Intake and Output 04/30/17 04/30/17 05/01/17 Cumulative From/Thru 15:00 23:00 07:00 04/30/17 20:19 - 05/01/17 05:40 Intake Total 2000 ml 672 ml 2672 ml Output Total 1300 ml 1300 ml Balance 2000 ml -628 ml 1372 ml Intake Oral 270 ml 270 ml IV Total 2000 ml 402 ml 2402 ml Output Urine Total 1300 ml 1300 ml # Bowel Movements 2 2 General: Ill-appearing, elderly woman with bilateral BKAs who appears uncomfortable and in mild distress. Appropriately interactive. HEENT: Normocephalic, atraumatic. PERRLA, EOMI. Anicteric sclera. Mouth normal , Mucous membranes moist/pink. Conjunctiva pale Lungs: Clear to auscultation bilaterally with no crackles, wheezes, or rhonchi. Cardiovascular: Regular rate/rhythm. No murmurs Abdomen: Soft, obese, nondistended, mildly tender to palpation in epigastrium. No masses. Hypoactive bowel tones Extremities: Bilateral BKAs, no edema or cyanosis. Skin: Damp. No obvious rashes or ulcerations Neurological: AOx3, No focal neurologic deficit. Normal speech Lab and Diagnostics Labs Laboratory Tests Test 04/30/17 21:05 04/30/17 21:15 04/30/17 23:56 05/01/17 06:09 White Blood Count 10.0th/mm3 (3.8-10.1) Red Blood Count 3.10mil/mm3 (3.90-5.20) Hemoglobin 8.1g/dL (12.0-15.6) Hematocrit 25.5% (35.0-46.0) Mean Corpuscular Volume 82.3fL (81-100) Mean Corpuscular Hemoglobin 26.1pg (27.0-35.0) Mean Corpuscular Hemoglobin Concent 31.8% (32.0-37.0) Red Cell Distribution Width 15.2% (12.3-15.4) Platelet Count 294bil/L (150-400) Neutrophils (%) (Auto) 66.5% (40-74) Lymphocytes (%) (Auto) 25.8% (14-46) Monocytes (%) (Auto) 4.8% (4-12) Eosinophils (%) (Auto) 2.5% (0-5) Basophils (%) (Auto) 0.2% (0-3) Prothrombin Time 11.3sec (8.1-12.5) Prothromb Time International Ratio 1.05ratio Sodium Level 134mEq/L (134-144) 136mEq/L (134-144) Potassium Level 5.1mEq/L (3.5-5.2) 4.7mEq/L (3.5-5.2) Chloride Level 98mEq/L (97-108) 104mEq/L (97-108) Carbon Dioxide Level 18mmol/L (18-29) 18mmol/L (18-29) Blood Urea Nitrogen 88mg/dL (8-27) 86mg/dL (8-27) Creatinine 1.29mg/dL (0.57-1.00) 1.21mg/dL (0.57-1.00) Estimat Glomerular Filtration Rate 56mL/min (>59) 60mL/min (>59) Glucose Level 206mg/dL (60-99) 185mg/dL (60-99) Calcium Level 8.6mg/dL (8.5-10.1) 8.5mg/dL (8.5-10.1) Magnesium Level 1.9mg/dL (1.6-2.6) 1.7mg/dL (1.6-2.6) Total Bilirubin 0.2mg/dL (0.0-1.2) Aspartate Amino Transf (AST/SGOT) 11U/L (0-50) Alanine Aminotransferase (ALT/SGPT) 8U/L (0-32) Alkaline Phosphatase 95U/L (25-165) Total Protein 7.2g/dL (6.4-8.4) Albumin 3.4g/dL (3.4-5.0) Lipase 66U/L (13-60) 66U/L (13-60) Hold Vickers Top Tube Received (Received) Urine Color Straw (YELLOW) Urine Appearance Cloudy (CLEAR,HAZY) Urine pH 5.5 (5.0-8.0) Urine Specific [place] 1.020 (1.003-1.035) Urine Protein 100mg/dL (NEG,TRACE) Urine Glucose (UA) Negativemg/dL (NEGATIVE) Urine Ketones Negativemg/dL (NEGATIVE) Urine Occult Blood Small (NEGATIVE) Urine Nitrite Positive (NEGATIVE) Urine Bilirubin Negative (NEGATIVE) Urine Urobilinogen Normalmg/dL (NORMAL) Urine Leukocyte Esterase Moderate (NEGATIVE) Urine RBC 0-2/hpf (0-2) Urine WBC 6-10/hpf (0-5) Urine Epithelial Cells Few/hpf (NONE-MOD) Urine Crystals None seen (NONE SEEN) Urine Bacteria Many/hpf (NONE-FEW) Urine Hyaline Casts None/lpf (NONE) Urine Granular Casts None seen (NONE SEEN) Urine Waxy Casts None seen (NONE SEEN) Urine Red Blood Cell Casts None seen (NONE SEEN) Urine White Blood Cell Casts None seen (NONE SEEN) Urine Mucus None seen (None Seen) Urine Trichomonas None seen (NONE SEEN) Urine Yeast None (NONE SEEN) Urinalysis Comment None Urine Culture Reflexed Indicated Hold Urine Received (Received) Uric Acid 6.2mg/dL (2.6-7.2) Phosphorus Level 2.8mg/dL (2.5-4.9) Iron Level 71ug/dL (35-150) Total Iron Binding Capacity 252ug/dL (250-450) Percent Iron Saturation 28%sat (15-50) Unsaturated Iron Binding 181.3ug/dL Ferritin 36ng/mL (13-150) Test 05/01/17 10:00 Hemoglobin 5.7g/dL (12.0-15.6) Hematocrit 18.3% (35.0-46.0) Microbiology 04/30/17 Urine Culture - GRAM NEG DONNY, PROBABLE E COLI SUSCEPTIBILITIES TO FOLLOW Result Diagram: 05/01/17 1000 05/01/17 0609 X-Rays, CTs and MRIs 04/30/17 - CT ABDOMEN AND PELVIS WITHOUT CONTRAST IMPRESSION: 1. No acute disease process. 2. Colonic diverticulosis without evidence of diverticulitis. 3. Nonobstructing bilateral renal stones. 4. Bilateral renal atrophy. Please correlate with clinical laboratory data to exclude chronic renal disease. 5. Atherosclerosis including the coronary vasculature. 6. Cardiomegaly. Approved by: Karrie Weiss MD, PhD on 05/01/2017 at 8:40 . Assessment & Plan Assessment 87-year-old and Cook Islander-speaking only woman with a history of uncontrolled diabetes type 2, chronic kidney disease, hypertension, chronic iron deficiency anemia, and bilateral below the knee amputation who presented to the ED with the complaint of abdominal cramping and diarrhea for three days. GI consulted for further evaluation of hematochezia. Anemia possibly secondary to GI bleed in a patient with diverticulosis noted on abdominal CT and no prior colonoscopy. - Patient presented with a vague constellation of symptoms including: chest pain , headache, generalized weakness, decreased appetite, diarrhea, and diaphoresis. Currently patient denies abdominal pain or similar symptoms in the past. Denies prior EGD or colonoscopy and patient's daughter reports recent outpatient diagnosis of iron deficiency anemia with a FOBT that she is uncertain of the results. Reportedly patient's omeprazole was also recently discontinued. - H/H has dropped significantly from 8.1/25.5 at presentation to 4.9/15.6. Patient is alert, hemodynamically stable, and without overt bleeding. However, bedside stool guiaic is positive and transfusion of pRBCs delayed at this time. Type and cross sent to the lab earlier today but patient apparently has a unique antibody and blood will need to be sent here from [place]. - Primary Hospitalist, Dr. Hardy has placed a call to [place] for possible transfer as we are unable to transfuse her at this time. - H/H dropped from 8.1/25.5 to 4.9/15.6 with guiaiac positive stool and diverticulosis noted on abdominal CT. Likely due to diverticular bleeding, which is supported by elevated BUN/Cr ratio. However, this does not fully explain the severe drop in H/H as there is no blood appreciated on rectal exam. - May be upper source for bleeding such as peptic ulcers, erosive gastritis/ duodenitis, vascular ectasia, and/or neoplasms- including colorectal malignancy. RECOMMENDATIONS: - Transfer to CCU, pending possible transfer - Rule out cardiac etiology for chest pain- troponin is pending - Head CT to rule out intracranial bleeding - Monitor H/H, transfuse pRBCs as soon as able with goal Hb > 8.0 - Will need EGD and colonoscopy when more stable Additional problems managed by primary Hospitalist: - Unstable angina - UTI w/preliminary culture growing E.coli - Acute on chronic renal failure - Chronic diabetes type II, w/hx of B/L BKA - Hypertension - Severe dehydration . Problems: Pain Evaluation: Adequate Pain Control GI Prophylaxis: Proton Pump Inhibitor VTE Prophylaxis: Sub-Q Heparin (Unfractionated) Resuscitation Status: CPR: Attempt Resuscitation Cindi Singleton DO May 01, 2017 15:48
--- NOTE | 2017-05-01 18:29 | DRSVH ---
PROCEDURE: CT BRAIN WITHOUT CONTRAST ([id number]) INDICATIONS: headache TECHNIQUE: Noncontrast 4.5 mm thick angled axial sections acquired from the foramen magnum to the vertex, with c oronal reformats. COMPARISON: [facility], CT, BRAIN W/O CONTRAST, 06/18/2014, 6:29. FINDINGS: Image quality: Excellent. CSF spaces: Basal cisterns are patent. No extra-axial fluid collections. The ventricles are symmet steven in size and shape. Brain: No intracranial bleeds or masses. There is cerebral volume loss for age, with resultant vent ricular and sulcal prominence. There are periventricular and deep white matter chronic small vessel ischemic changes. There is intracranial internal carotid artery atherosclerosis. Skull and face: Calvarium and visualized facial bones appear intact, without suspicious lesions. Sinuses: Visualized sinuses and mastoids are clear. IMPRESSION: 1. No acute intracranial process. 2. Moderate atrophy and chronic microvascular ischemic changes. Dictated by: Yessenia Gutiérrez M.D. on 05/01/2017 at 18:27 Approved by: Yessenia Gutiérrez M.D. on 05/01/2017 at 18:27
[2017-05-01] MEDS ORDERED: Hydrocortisone 50 mg/mL 2 mL Inj IVPUSH ONE (19:05)
--- NOTE | 2017-05-01 19:07 | NUR ---
Assessments All assessments done with medical interpreter at bedside.
[2017-05-01] MEDS: 0.9% Sodium Chloride 250 ML IV SCH ×2 (19:10→19:46)
--- NOTE | 2017-05-01 19:43 | NUR ---
Transfer to CCU: Patient arrived to CCU room 2013 as a transfer from [facility]. Patient arrived at about 1830. Pt was assisted to CCU bed with use of slider board. Pt A&O X3 (syriac speaking only). Daughter at bedside. VSS. L AC PIV infusing NS 100mL/hr. Pt c/o generalized weakness and 8/10 pain to her jaw. Percocet 1 tab administered. Rec'd call from Hospitalist Dr Hardy to transfuse one unit of blood from on site blood bank. Orders to medicate with Hydrocortisone 50mg IVP and Benadryl 25mg IVP 15 minutes prior to transfusion. Report given to DAVID MCNULTY.
[2017-05-02] VITALS (8 sets, daily range): BP systolic 122–145; BP diastolic 44–72; PULSE 74–104; RESP 11–20; O2SAT 95–96
--- NOTE | 2017-05-02 01:44 | NUR ---
P) Respiratory,Blood, Pt. drowsy, lungs with decreased breath sounds bilat, and crackles in bases, R>L. Transfused 2 units PRBC's, pt. developed a low grade fever, Dr. Medina informed. Pt. unable to use bedpan. I) Gamez catheter placed, immediately got 600ml. out.E) Gamez left in place, Dr. Medina informed and agreed with plan.
[2017-05-02 03:43] LABS: BASOPHILS % (AUTO) 0.2 % (0-3); EOSINOPHILS % (AUTO) 0.1 % (0-5); Mean Corpuscular Hemoglobin 28.2 pg (27.0-35.0); Mean Corpuscular Volume 85.9 fL (81-100); NEUTROPHILS % (AUTO) 73.4 % (40-74); Platelet Count 186 bil/L (150-400)
[2017-05-02] MEDS: 0.9% Sodium Chloride 1,000 ML IV SCH ×2 (07:36→16:31)
[2017-05-02] MEDS: DULoxetine 30 mg DR Capsule PO SCH (08:50)
[2017-05-02] MEDS: oxyCODONE-Acetamin 5-325 mg Tablet PO PRN (08:51)
--- NOTE | 2017-05-02 09:01 | PCM.PNMED ---
Subjective Date of Service May 02, 2017 Subjective GASTROENTEROLOGY PROGRESS NOTE: Attending Physician: Bang Ralph MD Resident Physician: Cindi Singleton DO Transferred to CCU. Primary hospitalist, Dr. Hardy was able to discuss the case with Dr. Golden for Hematology as well as [facility] regarding anti-K and autoantibodies prior to transfusion. Per Hematology, patient pre-medicated with 50mg IV hydrocortisone, 20mg Benadryl IV 15 minutes prior to transfusion and is now s/p 2 units pRBCs with H/H 7.4/22.5. Per nursing, patient was unable to use the bedpan and a [place] cather was placed which immediately drained 600mls. [place] catheter remains in place and patient continues to report suprapubic/lower abdominal tenderness. No new symptoms or complaint. Exam Vital Signs Vital Sign - Last Date Time Temp Pulse Resp B/P Pulse Ox O2 Delivery O2 Flow Rate FiO2 05/02/17 07:56 81 05/02/17 07:56 36.7 15 132/44 96 Room Air Intake and Output 05/01/17 05/01/17 05/02/17 Cumulative From/Thru 15:00 23:00 07:00 04/30/17 20:19 - 05/02/17 06:27 Intake Total 1729 ml 1135 ml 5536 ml Output Total 1200 ml 1250 ml 3750 ml Balance 529 ml -115 ml 1786 ml Intake Oral 400 ml 250 ml 920 ml IV Total 1004 ml 605 ml 4011 ml Packed Cells 325 ml 280 ml 605 ml Output Urine Total 1200 ml 1250 ml 3750 ml # Bowel Movements 0 2 Exam General: Ill-appearing, elderly woman with bilateral BKAs who appears uncomfortable but in no acute distress. HEENT: Atraumatic. Anicteric sclera. Mucous membranes moist/pink. Conjunctiva pale Lungs: Clear to auscultation without wheezing or crackles Cardiovascular: Regular rate/rhythm. No murmurs Abdomen: Soft, obese, nondistended, mild suprapubic tenderness. No masses. Hypoactive bowel tones Extremities: Bilateral BKAs, no edema or cyanosis. Neurological: AOx3, No focal neurologic deficit. Normal speech IVs and Medications Medications Reviewed: Medications were reviewed in detail Lab and Diagnostics Laboratory Tests Test 05/01/17 10:00 05/01/17 15:54 05/01/17 22:36 05/02/17 03:10 Hemoglobin 5.7g/dL (12.0-15.6) 4.9g/dL (12.0-15.6) 6.7g/dL (12.0-15.6) 7.4g/dL (12.0-15.6) Hematocrit 18.3% (35.0-46.0) 15.6% (35.0-46.0) 21.0% (35.0-46.0) 22.5% (35.0-46.0) Blood Urea Nitrogen 83mg/dL (8-27) 80mg/dL (8-27) Creatinine 1.14mg/dL (0.57-1.00) 1.09mg/dL (0.57-1.00) BUN/Creatinine Ratio 72.80 (7-24) Troponin T < 0.010ug/L (0.0-0.011) White Blood Count 11.4th/mm3 (3.8-10.1) Red Blood Count 2.62mil/mm3 (3.90-5.20) Mean Corpuscular Volume 85.9fL (81-100) Mean Corpuscular Hemoglobin 28.2pg (27.0-35.0) Mean Corpuscular Hemoglobin Concent 32.9% (32.0-37.0) Red Cell Distribution Width 14.7% (12.3-15.4) Platelet Count 186bil/L (150-400) Neutrophils (%) (Auto) 73.4% (40-74) Lymphocytes (%) (Auto) 21.5% (14-46) Monocytes (%) (Auto) 4.0% (4-12) Eosinophils (%) (Auto) 0.1% (0-5) Basophils (%) (Auto) 0.2% (0-3) Sodium Level 136mEq/L (134-144) Potassium Level 4.4mEq/L (3.5-5.2) Chloride Level 108mEq/L (97-108) Carbon Dioxide Level 16mmol/L (18-29) Estimat Glomerular Filtration Rate 68mL/min (>59) Glucose Level 218mg/dL (60-99) Calcium Level 8.5mg/dL (8.5-10.1) Total Bilirubin 0.2mg/dL (0.0-1.2) Aspartate Amino Transf (AST/SGOT) 8U/L (0-50) Alanine Aminotransferase (ALT/SGPT) 6U/L (0-32) Alkaline Phosphatase 60U/L (25-165) Total Protein 4.9g/dL (6.4-8.4) Albumin 2.6g/dL (3.4-5.0) Test 05/02/17 08:08 Microbiology 05/01/17 MRSA (PCR) - Final, Complete 04/30/17 Urine Culture - Final, Complete Escherichia Coli Result Diagram: 05/02/17 0310 05/02/17 0310 Microbiology 05/01/17 MRSA (PCR) - Negative 04/30/17 Urine Culture- Escherichia Coli X-Rays, CTs and MRIs 05/01/17 - CT ABDOMEN AND PELVIS WITHOUT CONTRAST IMPRESSION: 1. No acute disease process. 2. Colonic diverticulosis without evidence of diverticulitis. 3. Nonobstructing bilateral renal stones. 4. Bilateral renal atrophy. Please correlate with clinical laboratory data to exclude chronic renal disease. 5. Atherosclerosis including the coronary vasculature. 6. Cardiomegaly. Approved by: Karrie Weiss MD, PhD on 05/01/2017 at 8:40 05/01/17 - CT BRAIN WITHOUT CONTRAST IMPRESSION: 1. No acute intracranial process. 2. Moderate atrophy and chronic microvascular ischemic changes. Approved by: Yessenia Gutiérrez M.D. on 05/01/2017 at 18:27 05/01/17 - US RENAL SONOGRAM IMPRESSION: 1. No evidence of hydronephrosis. 2. Slightly increased renal cortical echogenicity suggesting medical renal disease. 3. Probable small nonobstructing stone in the right kidney. Approved by: Ronn Greenwood M.D. on 05/01/2017 at 17:13 . Assessment & Plan 87-year-old and [place]ander-speaking only woman with a history of uncontrolled diabetes type 2, chronic kidney disease, hypertension, chronic iron deficiency anemia, and bilateral below the knee amputation who presented to the ED with the complaint of abdominal cramping and diarrhea for three days. GI consulted for further evaluation of hematochezia. Symptomatic anemia secondary to GI bleed in a patient with diverticulosis noted on abdominal CT and no prior colonoscopy. - Suspect diverticular bleeding. Uncertain this is only source for bleeding. Could also have bleeding from upper GI tract due to PUD, erosive gastritis/ duodenitis, and/or neoplasms. - Patient without prior EGD or colonoscopyl hx of iron deficiency anemia and started on supplemental iron. Recently discontinued omeprazole. - Stool guiaic positive; H/H dropped from 8.1/25.5 at presentation to 4.9/15.6 w / transfusion delayed due difficulties w/ type and cross. Primary hospitalist Dr. Hardy reviewed case w/[facility] and Hematology. - Now s/p 2 units pRBCs, prior to transfusion rec'd: 50 mg IV hydrocortisone, and 20 mg IV Benadryl - H/H appears stable, most recently 7.4/22.5. Still no overt signs of active bleeding. RECOMMENDATIONS: - Continue to monitor H/H, transfuse blood products as needed - Clear liquid diet and start bowel prep this afternoon - EGD and colonoscopy tomorrow Additional problems managed by primary Hospitalist: - UTI w/preliminary culture growing E.coli - Acute on chronic renal failure - Urine retention acute on chronic - Chronic diabetes type II, w/hx of B/L BKA - Hypertension, chronic - Angina chronic - Elevated lipase acute - CAD symptoms stable - Chronic peripheral neuropathy GI Prophylaxis: Proton Pump Inhibitor VTE Prophylaxis: Sub-Q Heparin (Unfractionated) Resuscitation Status: CPR: Attempt Resuscitation Cindi Singleton DO May 02, 2017 09:01 does not have any thing else available. RECOMMENDATIONS: - Monitor H/H, transfuse pRBCs as soon as able with goal Hb > 8.0 - EGD and colonoscopy tomorrow Additional problems managed by primary Hospitalist: - Unstable angina - UTI w/preliminary culture growing E.coli - Acute on chronic renal failure - Chronic diabetes type II, w/hx of B/L BKA - Hypertension - Severe dehydration Additional problems managed by primary medicine team: Urine retention acute on chronic Elevated BUN acute Acute on chronic kidney disease Urinary tract infection Angina chronic Elevated lipase acute Chronic CAD symptoms stable Chronic hypertension Chronic diabetes mellitus Chronic peripheral neuropathy GI Prophylaxis: Proton Pump Inhibitor VTE Prophylaxis: Sub-Q Heparin (Unfractionated) Resuscitation Status: CPR: Attempt Resuscitation Cindi Singleton DO May 02, 2017 09:01
[2017-05-02] MEDS: Insulin Human REGular 300 Unit/3 mL Inj SUBQ SCH ×3 (09:02→22:55)
[2017-05-02] MEDS: cefTRIAXone Inj 1,000 MG in Dextrose 5% Minibag Plus 50 ML IV SCH (10:18)
--- NOTE | 2017-05-02 11:23 | NUR ---
Faxed clinicals to [facility] per ULTRASOUND SONOGRAPHER
[2017-05-02] MEDS: 0.9% Sodium Chloride 250 ML IV SCH ×2 (11:30→19:10)
[2017-05-02] MEDS: Senna-Docusate 8.6-50 mg Tablet PO SCH ×2 (11:34→20:30)
--- NOTE | 2017-05-02 11:50 | NUR ---
NUTRITION ASSESSMENT: ASSESS: 87 YO female presented to the ED with the complaint of abdominal cramping and diarrhea for the last few days. She reports decreased appetite, fatigue, generalized weakness, and 2-3 episodes of diarrhea that were associated with diaphoresis and reportedly nonbloody. Symptomatic anemia secondary to GI bleed in a patient with diverticulosis noted on abdominal CT and no prior colonoscopy; suspect diverticular bleeding vs/ upper GI tract due to PUD, erosive gastritis/duodenitis, and/or neoplasms. EGD scheduled for tomorrow. PMHx: Type 2 diabetes with bilateral lower leg amputations, HTN, BINDU, CKD. DIET: Clear liquids. LABS: Reviewed. Chloride 109, CO2 17, BUN 77, Cr 1.18, Glu 186, A1c pending (was 8.0 on 05/01/17). MEDICATIONS: Reviewed. Insulin. NUTRITION FOCUSED PHYSICAL ASSESSMENT: GI symptoms / stool: BM x 2 (05/01)Ayan: 15. Skin Integrity: No issues reported. ANTHROPOMETRICS: Current Wt: 71.6 kg BMI: 46.0 kg/m2. Admit weight: 70.2 kg ABW: 61.92 kg ESTIMATED NEEDS (BILAT. LL AMPUTATIONS: Calories: 1192 - 1356 kcal (22 - 25 kcal / kg ABW) Protein 65 - 82 g protein (1.2 - 1.5 g / kg ABW) NUTRITION DIAGNOSIS: 1)Inadequate oral intake related to altered GI function, as evidenced by clear liquid status, pending EGD tomorrow. INTERVENTION: 1) Will send apple Ensure Clear Liquid on trays. MONITOR/EVALUATE: NPO / clear liquid status, EGD results, diet advance, labs, weight, nutritional status. Follow up per moderate nutrition risk guidelines.
--- NOTE | 2017-05-02 12:30 | NUR ---
Pain.. Pt had c/o her urinary catheter being painful.. Catheter irrigated and 40 cc of net clear yellow urine returned. Pain subsided. Later c/o lower abdominal pain that occurs intermittently and radiated to back. Med with percocet and this was effective. Has been started on clear liquid diet and is shiva this well without nausea or emesis. Will be NPO after midnight for EGD/colonoscopy tomorrow. This was explained to pt as well as prep involved via baggage clerk.
--- NOTE | 2017-05-02 13:24 | PCM.PNMED ---
Subjective Date of Service May 02, 2017 Subjective Patient is an 87yof with long standing DMII and CKD, came in for diarrhea and abdominal bloating with critical hemoglobin 4.5 s/p 2units pRBC, patient for EGD and colonoscopy. Use plant manager. Patient denies any diarrhea, eating jello. Reports mild b/l lower quadrant pain. no acute back pain, nor fever, chills, night sweat. Exam Vital Signs Vital Sign - Last Date Time Temp Pulse Resp B/P Pulse Ox O2 Delivery O2 Flow Rate FiO2 05/02/17 12:15 74 05/02/17 12:09 37.0 15 132/49 95 Room Air Intake and Output 05/01/17 05/01/17 05/02/17 Cumulative From/Thru 15:00 23:00 07:00 04/30/17 20:19 - 05/02/17 06:27 Intake Total 1729 ml 1135 ml 5536 ml Output Total 1200 ml 1250 ml 3750 ml Balance 529 ml -115 ml 1786 ml Intake Oral 400 ml 250 ml 920 ml IV Total 1004 ml 605 ml 4011 ml Packed Cells 325 ml 280 ml 605 ml Output Urine Total 1200 ml 1250 ml 3750 ml # Bowel Movements 0 2 Exam General: No acute distress, appropriately interactive HEENT: no gingival bleeding. Normocephalic, atraumatic. PERRLA, mild conjunctiva pallor Neck: cannot appreciate JVD, No bruits. No lymphadenopathy or thyromegaly. Cardiovascular: Regular rate and rhythm with no murmurs, rubs, or gallops appreciated Pulmonary: Bilateral air sound, mild coarse breath of the lower basis, otherwise no crackles or wheezes. Abdomen: +Bowel sound, Soft, nontender, nondistended. Extremities: No clubbing or cyanosis, no lymphedema, R below knee, and left above knee amputation. Skin: Normal temperature, turgor, and texture; no rash. No visualized skin ulcer. Neurological: CN II-VII grossly intact, moving equally on all 4 extremities Psychiatric: Normal mood and affect. AOx3 Lab and Diagnostics Result Diagram: 05/02/17 0310 05/02/17 0808 Microbiology 05/01/17 MRSA (PCR) - Negative 04/30/17 Urine Culture- Escherichia Coli X-Rays, CTs and MRIs 05/01/17 - CT ABDOMEN AND PELVIS WITHOUT CONTRAST IMPRESSION: 1. No acute disease process. 2. Colonic diverticulosis without evidence of diverticulitis. 3. Nonobstructing bilateral renal stones. 4. Bilateral renal atrophy. Please correlate with clinical laboratory data to exclude chronic renal disease. 5. Atherosclerosis including the coronary vasculature. 6. Cardiomegaly. Approved by: Karrie Weiss MD, PhD on 05/01/2017 at 8:40 05/01/17 - CT BRAIN WITHOUT CONTRAST IMPRESSION: 1. No acute intracranial process. 2. Moderate atrophy and chronic microvascular ischemic changes. Approved by: Yessenia Gutiérrez M.D. on 05/01/2017 at 18:27 05/01/17 - US RENAL SONOGRAM IMPRESSION: 1. No evidence of hydronephrosis. 2. Slightly increased renal cortical echogenicity suggesting medical renal disease. 3. Probable small nonobstructing stone in the right kidney. Approved by: Ronn Greenwood M.D. on 05/01/2017 at 17:13 . Assessment & Plan Patient is an 87-year-old female that presents with urinary tract infection and abdominal pain. She has a history of poorly controlled diabetes, chronic kidney disease, Acute on chronic normocytic anemia. -- likely slow GI bleed in the setting of CKD -- Patient has a history of iron deficiency anemia, was identified and supplementation at home -- Discontinue heparin subcutaneous -- Upon admission her hemoglobin was 8->5.7->4.9 -- Patient never had a colonoscopy, stool guaiac was positive in the room -- GI was consulted, Dr. Ralph has seen the patient, the plan to do double scope tomorrow a.m. if hemoglobin remains stable -- Blood transfusion was ordered but was held due to concern for K antibody, as well as autoantibodies. Lab was able to cross one unit for anti-K, they sent the sample to a [facility] for autoantibodies testing, waiting for antigen screened blood. Around 6 PM [facility] called our lab saying that we could transfuse one unit they had already crossmatched, with the understanding that this is an emergent requirement under the discretion of a physician. Discussed case with Dr. Danny Golden, he recommends pre-medicating the patient with 50 mg IV hydrocortisone, 20 mg of Benadryl IV 15 minutes prior to transfusion and go ahead with transfusion as pt does not have any thing else available. This has been ordered. -- H/H stable, patient asymptomatic, vitals stable. transfer out of ICU, go- lytely prep tonight for EGD/colonoscopy tomorrow Urine retention acute on chronic, POA -- The patient was bladder scanned for 750 cc, 900 cc were straight catheter by nursing -- Cont to treat constipation with miralax and senna. -- Patient stated that her bloating and abdominal pain have completely resolved after straight cath -- Bladder Scan Q6H and straight cath if > 350 cc retention Elevated BUN acute present on admission -- Likely secondary to GI bleed versus less likely prerenal azotemia -- Has baseline CKD3 -- Retroperitoeal US demonstrate CKD, negative eosinophil, uric acid normal UTI, present upon admission and improving -UA positive for blood, nitrites, and leuk culture grew gram-negative rods> 100, 000 CFU -Received one dose of Ceftriaxone in ED -- Continue Ceftriaxone, 1 g IV daily started (05/01) -- Follow culture sensitivities Chronic kidney disease, present upon admission and chronic - Disease stage 3 - Cr on admission is 1.29. Baseline Cr is 1.3 found in February 2017 outpatient labs. - GFR on admission is 56. Baseline GFR of 37 found in February 2017 outpatient labs. - Avoid nephrotoxic medications - NS @ 100 ml/hr Angina, present upon admission and chronic - Patient denies a diagnosis of angina but admits to chest pain improved with nitroglycerin - Continue home medication of nitroglycerin Elevated lipase present on admission acute -- Patient's lipase is elevated at 66 on admission, likely from the acute kidney injury -- Continue to monitor Chronic CAD symptoms stable -- Continue Coreg, atorvastatin Chronic hypertension presumed stable -- Continue home medication amlodipine Chronic diabetes mellitus presumed stable -- Sliding-scale insulin low Chronic peripheral neuropathy presumed stable -- Continue gabapentin and duloxetine GI Prophylaxis: Proton Pump Inhibitor VTE Prophylaxis: Sub-Q Heparin (Unfractionated) Resuscitation Status: CPR: Attempt Resuscitation Time spent 40 minutes Attending Statement I interviewed and examined the patient on rounds today. Hypoproliferative normocytic anemia. Suspect subacute GI bleeding with concomitant chronic disease anemia. I agree with the assessment and plan as stated above. Davey Brooke DO May 02, 2017 13:24 Jaiden Arreguin MD May 02, 2017 18:29
[2017-05-02] MEDS ORDERED: PEG/Electrolytes 4,000 mL Solution PO ONE (16:00)
[2017-05-02] MEDS: Ondansetron 2 mg/mL 2 mL Inj IVPUSH PRN (22:54)
[2017-05-03] VITALS (12 sets, daily range): BP systolic 134–169; BP diastolic 58–79; PULSE 63–103; RESP 16–24; O2SAT 93–95
[2017-05-03] MEDS: 0.9% Sodium Chloride 1,000 ML IV SCH ×2 (00:06→12:32)
--- NOTE | 2017-05-03 05:37 | NUR ---
BM/Emesis/NPO Pt has been incontinent of 4 extra large black liquid stools. Pt has been unable to get onto BSC or bedpan in time so pt has chux pads underneath along with a brief on. Pt did have approximately 700cc emesis prior to midnight of the golytely that the pt was drinking in preparation for colonoscopy in the AM. Pt was given 8mg of zofran IVP and pt has had no further emesis. Pt has been NPO since midnight.
[2017-05-03] MEDS: Insulin Human REGular 300 Unit/3 mL Inj SUBQ SCH ×3 (05:54→15:24)
[2017-05-03] MEDS: oxyCODONE-Acetamin 5-325 mg Tablet PO PRN (06:00)
--- NOTE | 2017-05-03 06:06 | NUR ---
BGs and Insulin Pt has Q6H BGs with Regular Insulin coverage. Pt's HS BG was 217 and pt required coverage. There was no Regular Insulin in the pt's drawer so a request was placed with pharmacy to send up a vial of Regular Insulin. Insulin did arrive and pt was given 1 unit due to pt having approximately 700cc emesis prior to insulin administration. Due to not having the medication in the pt's drawer the insulin was given approximately 2 hours later than the schedule in the [facility]. Pt's next Q6H BG was due at 0530 this AM and it was 157. Once again pt required 1 unit of coverage. Next Q6H BG should be at 1130.
[2017-05-03] MEDS: Senna-Docusate 8.6-50 mg Tablet PO SCH (08:30)
--- NOTE | 2017-05-03 09:21 | PCM.PNSURG ---
Subjective Date of Service: May 03, 2017 Date of Service: May 03, 2017 Visit Information: Subjective: hb 5.7 this am. Pt requires specialized blood products not kept inhouse. only 2 units inhouse for pt. pt with active chest and jaw pain. Cases cancelled this am. pt with melena. Postop General: No Complaints Objective Vital Sign- Last 8 Hours Date Time Temp Pulse Resp B/P Pulse Ox O2 Delivery O2 Flow Rate FiO2 05/03/17 08:57 37.1 74 16 143/59 94 Room Air 05/03/17 08:40 37.1 74 18 143/59 94 Room Air 05/03/17 05:58 75 05/03/17 05:47 37.8 103 24 166/79 95 Room Air 05/03/17 01:24 37.1 73 16 139/63 95 Room Air Intake and Output- Last 8 Hour 05/03/17 Cumulative From/Thru 07:00 04/30/17 20:19 - 05/03/17 05:47 Intake Total 1991 ml 9175 ml Output Total 2650 ml 7640 ml Balance -659 ml 1535 ml Intake Oral 1010 ml 2640 ml IV Total 981 ml 5930 ml Packed Cells 605 ml Output Urine Total 1950 ml 6940 ml Emesis 700 ml 700 ml # Bowel Movements 4 6 General: Oriented X3 Neck: Supple Lungs: Clear to Auscultation Heart: Exam Unremarkable Abdomen: Benign, Soft, Non-tender, Non-distended, Normoactive bowel tones Extremities: Distal Pulses Palpable Result Diagram: 05/03/17 0810 05/02/17 0808 Assessment & Plan Impression 87-year-old and German-speaking only woman with a history of uncontrolled diabetes type 2, chronic kidney disease, hypertension, chronic iron deficiency anemia, and bilateral below the knee amputation who presented to the ED with the complaint of abdominal cramping and diarrhea for three days. GI consulted for further evaluation of hematochezia. hb 5.7 this am. Pt requires specialized blood products not kept inhouse. only 2 units of specialized prbcs inhouse for this pt which recommend transfuse pt now. pt with active chest and jaw pain. Cases cancelled this am per anesthesia. pt with melena. Given the type of blood pt requires, would highly recommend patient to be transferred to another facility that has the blood products for this patient. RECOMMENDATIONS: - hold off on egd/colon given lack of type of blood products. pt with active chest pain and jaw pain - highly recommend patient to be transferred to another facility that has the specialized blood products for this patient. Problems: VTE Prophylaxis: Sub-Q Heparin (Unfractionated) Resuscitation Status: CPR: Attempt Resuscitation Bang Ralph MD May 03, 2017 09:21
--- NOTE | 2017-05-03 09:26 | PCM.ANEPRE ---
Anesthesia Pre-Op Review Reason for Review: Ongoing GI bleed, candidate for EGD/colonoscopy Anesthesia Recommendations: Delay until Additional Data Obtain Additional Comments Karo Bernard is a 87yo F with HTN, CKD, DM2, PVD s/p bilateral AKA/BKA admitted with melena with HCT samy of 15 with resuscitation complicated by Anti -K antibody who presents for EGD/colonoscopy. Her HCT this morning is down to 17 from 21 and she is now complaining of intermittent chest and jaw pain, she is not tachycardic, but on beta juan c. She has just 2 units of RBCs available in the hospital. She requires aggressive resuscitation, resourcing of additional blood products, EKG, and further optimization prior to proceeding with an anesthetic for this procedure. She denies any cardiac symptoms prior to this morning and pathology including CAD/CHF/arrhythmias and has a nml TTE in 2012. Given her risk factors and limited blood resources at this facility the GI and hospitalist physicians are exploring her acuity facilities to provide better resources in the event of causing more aggressive bleeding with the procedure. I discussed her history and active needs with her and her daughter/POA with support of the science interpreter. PARQ conducted, consent signed, should we have to proceed with the procedure at this facility. Blood products and EKG were arriving bedside at conclusion of our discussion. Aldo Oden MD May 03, 2017 09:26
[2017-05-03] MEDS: DULoxetine 30 mg DR Capsule PO SCH (10:09)
[2017-05-03] MEDS: cefTRIAXone Inj 1,000 MG in Dextrose 5% Minibag Plus 50 ML IV SCH (12:27)
[2017-05-03] MEDS: 0.9% Sodium Chloride 250 ML IV SCH ×2 (12:33→17:18)
--- NOTE | 2017-05-03 15:07 | PCM.DC.MED ---
Discharge Summary Date of Service May 03, 2017 Dates of Hospitalization Date of Hospital Admission Apr 30, 2017 at 22:36 Date of Discharge: May 03, 2017 Providers: Admitting Physician: Yudelka Ruiz DO Primary Care Physician: Amirah Edouard MD Attending Physician: Jaiden Arreguin MD Diagnosis at Time of Discharge Diagnosis at Time of Discharge Acute GI blood loss anemia Non-ST elevation myocardial infarction, due to symptomatic anemia Urinary tract infection Type II diabetes mellitus - hemoglobin A1c 6.1% Peripheral vascular disease Chronic neuropathic pain Consultations GASTROENTEROLOGY CONSULT: Attending Physician: Bang Ralph MD Resident Physician: Cindi Singleton DO Karo Bernard is an 87-year-old woman with a history of uncontrolled diabetes type 2, chronic kidney disease, hypertension, chronic iron deficiency anemia, and bilateral BKA who presented to the ED with the complaint of abdominal cramping and diarrhea for the last few days. She is somewhat of a poor historian and history obtained from patient and her daughter via manager store as well as chart review. At the time of my assessment the patient denies abdominal pain and states that the reason she came in was for abdominal bloating. She reports decreased appetite, fatigue, generalized weakness, and 2- 3 episodes of diarrhea that were associated with diaphoresis and reportedly nonbloody. She denies a history of similar symptoms in the past and states that she was recently started on supplemental iron by her PCP for anemia. Around that same time FOBT was done but the daughter states she never heard the results. Additionally she states that she had been taking omeprazole for a long time but this was also discontinued recently. Her main complaint at this time is chest pain that does not radiate but is associated with a headache. She denies urinary symptoms, fever, chills, nausea, vomiting, and shortness of breath. At presentation to the emergency department she was afebrile, hypertensive (161/ 76), and mildly tachycardic at times with a heart rate in low 100s. Her oxygen sats were 94-99% on room air with a respiratory rate of 16. UA was consistent with infection and culture has since grown E. coli. CBC was significant for normocytic anemia with H/H of 8.1/25.5 and a normal white blood cell count, platelets, and PT/INR. However, patient's H/H has dropped significantly since admission; most recently Hb 4.9/15.6 without obvious bleeding. Bedside stool guiaiac is positive. CMP significant for elevated BUN of 88 and Creatinine of 1.29 with a BUN/Cr ratio of 72.8. Her apparent baseline Creatinine and GFR based on outpatient labs in February 2017 are as follows: Cr 1.3, GFR 37. LFTs are within normal limits and lipase mildly elevated at 66. Cardiac enzymes were not ordered at presentation and are now pending. She was however started on heparin for DVT prophylaxis and this has been discontinued. CT Abd and pelvis showed diverticula without evidence of diverticulitis and nonobstructing renal stones bilaterally. RECOMMENDATIONS: - hold off on egd/colon given lack of type of blood products. pt with active chest pain and jaw pain - highly recommend patient to be transferred to another facility that has the specialized blood products for this patient. . Procedures XRay, CTs & MRIs 05/01/17 - CT ABDOMEN AND PELVIS WITHOUT CONTRAST IMPRESSION: 1. No acute disease process. 2. Colonic diverticulosis without evidence of diverticulitis. 3. Nonobstructing bilateral renal stones. 4. Bilateral renal atrophy. Please correlate with clinical laboratory data to exclude chronic renal disease. 5. Atherosclerosis including the coronary vasculature. 6. Cardiomegaly. Approved by: Karrie Weiss MD, PhD on 05/01/2017 at 8:40 05/01/17 - CT BRAIN WITHOUT CONTRAST IMPRESSION: 1. No acute intracranial process. 2. Moderate atrophy and chronic microvascular ischemic changes. Approved by: Yessenia Gutiérrez M.D. on 05/01/2017 at 18:27 05/01/17 - US RENAL SONOGRAM IMPRESSION: 1. No evidence of hydronephrosis. 2. Slightly increased renal cortical echogenicity suggesting medical renal disease. 3. Probable small nonobstructing stone in the right kidney. Approved by: Ronn Greenwood M.D. on 05/01/2017 at 17:13 . ECG 12 Lead 05/03/17 at 09:15 (with chest pain) sinus rhythm rate 77, QTC 506, LVH by limb lead criteria, less than 0.[address] depression in V4-V6. Brief History History of Present Illness (per admission note): Patient is an 87-year-old female that presented to the emergency department complaining of abdominal cramping and bloating that started a few days ago and worsened yesterday. She has a history of diabetes and hypertension. History was obtained from the patient and translated by the nurse, Purnima and with outpatient chart review Patient states that she developed generalized abdominal pain on Friday (6 days ago) which worsened yesterday. It has since improved with an increase in water consumption. She also admits to 3 episodes of diarrhea yesterday and 2 today. She states that the diarrhea is improving. Patient reports previous UTI several years ago. She states that she did not drink much water the day before symptoms started. Patient admits subjective fever, chills, diaphoresis, diarrhea, and nausea Patient denies dysuria, increased urination, vomiting, shortness of breath, hematochezia Hospital Course # Acute GI blood loss anemia on chronic normocytic anemia. Hemoglobin on admission 8.1, dropped to 4.9 within 24 hours. Transfused 2 units RBC with subsequent hemoglobin 7.4 on 05/02. Hemoglobin 5.7 on 05.03 at 08: 10. Stool is grossly guaiac positive. There is no hypertension, but she showed tachycardia at time of severe anemia. -- Upon admission her hemoglobin was 8->5.7->4.9 -- Patient never had a colonoscopy, stool guaiac was positive in the room -- Blood transfusion was ordered but was held due to concern for K antibody, as well as autoantibodies. Lab was able to cross one unit for anti-K. Around 6 PM [facility] called our lab saying that we could transfuse one unit they had already crossmatched, with the understanding that this is an emergent requirement under the discretion of a physician. Discussed case with Dr. Danny Golden, he recommends pre-medicating the patient with 50 mg IV hydrocortisone, 20 mg of Benadryl IV 15 minutes prior to transfusion and go ahead with transfusion as pt does not have any thing else available. This has been ordered. -- GI was consulted, Dr. Ralph has seen the patient, the plan to do double scope tomorrow, but anesthesia declines the case due to lack of adequate blood products for emergency resuscitation. #Chest pain, elevated troponin, not present on admission. Patient is a vague historian with a generally bustamante-positive review of systems. On 05/03/17 she endorsed chest pain at which time her hemoglobin was 5.7. Troponin T checked at this time was mildly elevated. EKG was unremarkable. She was subsequently pain-free following transfusion but no other antianginal intervention. Likely cardiac injury due to symptomatic anemia. - Follow clinically -Troponin monitoring -- Continue Coreg, atorvastatin Tonsil and Urine retention acute on chronic, POA -- The patient was bladder scanned for 750 cc, 900 cc were straight catheter by nursing -- Cont to treat constipation with miralax and senna. -- Patient stated that her bloating and abdominal pain have completely resolved after straight cath -- Bladder Scan Q6H and straight cath if > 350 cc retention # Elevated BUN acute present on admission -- Likely secondary to GI bleed versus less likely prerenal azotemia -- Has baseline CKD3 -- Retroperitoeal US demonstrate CKD, negative eosinophil, uric acid normal #Possible UTI, present upon admission and improving. The patient endorses lower abdominal pain consistent with bladder pain versus bowel pain. - UA positive for blood, nitrites, and leuk, with 6-10 WBCs; culture grew gram- negative rods> 100,000 CFU -- Continue Ceftriaxone, 1 g IV daily started (05/01) -- Follow culture sensitivities # Chronic kidney disease, present upon admission and chronic - Disease stage 3 - Cr on admission is 1.29. Baseline Cr is 1.3 found in February 2017 outpatient labs. - GFR on admission is 56. Baseline GFR of 37 found in February 2017 outpatient labs. - Avoid nephrotoxic medications - NS @ 100 ml/hr Other problems: Chronic hypertension presumed stable -- Continue home medication amlodipine Chronic diabetes mellitus presumed stable -- Sliding-scale insulin low Chronic peripheral neuropathy presumed stable -- Continue gabapentin and duloxetine Exam Vital Signs (Last) Date Time Temp Pulse Resp B/P Pulse Ox O2 Delivery O2 Flow Rate FiO2 05/03/17 14:42 37.3 69 22 145/69 05/03/17 12:26 93 Room Air Exam General: Slightly pale appearing elderly woman, no acute distress HEENT: sclerae anicteric, oral mucosa moist Neck: no JVD, supple, Chest: clear to auscultation Cardiac: S1S2, regular, no murmur Abdomen: BS normal, non-tender Extremities: Bilateral BKA, no pitting edema, no focal soft tissue infection Neuro: Estonian-speaking, A&O, cranial nerves symmetric, motor strength and coordination normal Test 04/30/17 21:05 04/30/17 21:15 04/30/17 23:56 05/01/17 06:09 Prothrombin Time 11.3sec (8.1-12.5) Prothromb Time International Ratio 1.05ratio Hold Vickers Top Tube Received (Received) Urine Color Straw (YELLOW) Urine Appearance Cloudy (CLEAR,HAZY) Urine pH 5.5 (5.0-8.0) Urine Specific [place] 1.020 (1.003-1.035) Urine Protein 100mg/dL (NEG,TRACE) Urine Glucose (UA) Negativemg/dL (NEGATIVE) Urine Ketones Negativemg/dL (NEGATIVE) Urine Occult Blood Small (NEGATIVE) Urine Nitrite Positive (NEGATIVE) Urine Bilirubin Negative (NEGATIVE) Urine Urobilinogen Normalmg/dL (NORMAL) Urine Leukocyte Esterase Moderate (NEGATIVE) Urine RBC 0-2/hpf (0-2) Urine WBC 6-10/hpf (0-5) Urine Epithelial Cells Few/hpf (NONE-MOD) Urine Crystals None seen (NONE SEEN) Urine Bacteria Many/hpf (NONE-FEW) Urine Hyaline Casts None/lpf (NONE) Urine Granular Casts None seen (NONE SEEN) Urine Waxy Casts None seen (NONE SEEN) Urine Red Blood Cell Casts None seen (NONE SEEN) Urine White Blood Cell Casts None seen (NONE SEEN) Urine Mucus None seen (None Seen) Urine Trichomonas None seen (NONE SEEN) Urine Yeast None (NONE SEEN) Urinalysis Comment None Urine Culture Reflexed Indicated Hold Urine Received (Received) Uric Acid 6.2mg/dL (2.6-7.2) Phosphorus Level 2.8mg/dL (2.5-4.9) Magnesium Level 1.7mg/dL (1.6-2.6) Iron Level 71ug/dL (35-150) Total Iron Binding Capacity 252ug/dL (250-450) Percent Iron Saturation 28%sat (15-50) Unsaturated Iron Binding 181.3ug/dL Ferritin 36ng/mL (13-150) Lipase 66U/L (13-60) Specimen: [id number] Collected: 04/30/17 Status: COMP Req#: [id number] Received: 04/30/17 Source: URINE CC Sp Desc : PP Subm Dr: Saud Pryor MD Ordered: URINE CULT Procedure Result Verified Site Microbiology ELO CULT URINE Final 05/02/17-0836 Organism 1 ESCHERICHIA COLI U COLONY COUNT/QUANTITY >100,000 CFU/ml Cefazolin-predicts results for the oral agents, cefaclor,cefdinir, cefpodoximen, cefprozil, cefuroximne axetil, cephalexin and loracarbed when used for therapy of uncomplicated UTI's due to E. coli, K. pneumoniae, and Proteus mirabilis. Cefpodoxime, cefdinir and cefuroxime axetil may be tested individually because some isolates may be susceptible to these agents while testing resistant to cefazolin. (CLSI S636-L27 pg 53) 1. ESCHERICHIA COLI M.I.C Interp --------- ------ * AMOXICILLIN/CLAVULATE 4 S * AMPICILLIN <=2 S * CEFAZOLIN (CEPHALOSPORIN) UTI 4 S * CEFEPIME <=1 S * CEFTRIAXONE <=1 S * CEFUROXIME SODIUM 4 S * CIPROFLOXACIN <=0.25 S * ERTAPENEM <=0.5 S * GENTAMICIN <=1 S * IMIPENEM <=1 S * LEVOFLOXACIN <=0.12 S * NITROFURANTOIN <=16 S * TETRACYCLINE <=1 S * TOBRAMYCIN <=1 S * TRIMETHOPRIM/SULFAMETHOXAZOLE <=20 S Test 05/01/17 15:54 05/02/17 03:10 05/02/17 08:08 05/03/17 08:10 BUN/Creatinine Ratio 72.80 (7-24) White Blood Count 11.4th/mm3 (3.8-10.1) Red Blood Count 2.62mil/mm3 (3.90-5.20) Mean Corpuscular Volume 85.9fL (81-100) Mean Corpuscular Hemoglobin 28.2pg (27.0-35.0) Mean Corpuscular Hemoglobin Concent 32.9% (32.0-37.0) Red Cell Distribution Width 14.7% (12.3-15.4) Platelet Count 186bil/L (150-400) Neutrophils (%) (Auto) 73.4% (40-74) Lymphocytes (%) (Auto) 21.5% (14-46) Monocytes (%) (Auto) 4.0% (4-12) Eosinophils (%) (Auto) 0.1% (0-5) Basophils (%) (Auto) 0.2% (0-3) Hemoglobin A1c 6.1% (4.8-5.6) Reticulocyte Count,Calculated 3.1% (0.6-2.6) Sodium Level 137mEq/L (134-144) Potassium Level 4.5mEq/L (3.5-5.2) Chloride Level 109mEq/L (97-108) Carbon Dioxide Level 17mmol/L (18-29) Blood Urea Nitrogen 77mg/dL (8-27) Creatinine 1.18mg/dL (0.57-1.00) Estimat Glomerular Filtration Rate 62mL/min (>59) Glucose Level 186mg/dL (60-99) Calcium Level 8.4mg/dL (8.5-10.1) Total Bilirubin 0.2mg/dL (0.0-1.2) Aspartate Amino Transf (AST/SGOT) 11U/L (0-50) Alanine Aminotransferase (ALT/SGPT) 6U/L (0-32) Alkaline Phosphatase 52U/L (25-165) Total Protein 5.0g/dL (6.4-8.4) Albumin 2.6g/dL (3.4-5.0) Hemoglobin 5.7g/dL (12.0-15.6) Hematocrit 17.6% (35.0-46.0) Test 05/03/17 09:48 Troponin T 0.069ug/L (0.0-0.011) Microbiology Results 05/01/17 MRSA (PCR) - Negative 04/30/17 Urine Culture- Escherichia Coli Discharge Medications Discharge Medications Amlodipine (Amlodipine) 10 Mg Tablet 10 MG PO NOON (Reported) Aspirin (Aspirin) 325 Mg Tablet.dr 325 MG PO PM (Reported) Atorvastatin Calcium (Atorvastatin Calcium) 20 Mg Tablet 20 MG PO HS (Reported) Carvedilol (Carvedilol) 12.5 Mg Tablet 12.5 MG PO BIDWM (Reported) Cholecalciferol (Vitamin D3) (Vitamin D) 1,000 Unit Tablet 2,000 UNIT PO AM ( Reported) Cyanocobalamin (Cyanocobalamin Injection) 1,000 Mcg/1 Ml Vial 1,000 MCG IM Monthly (Reported) Duloxetine (Cymbalta) 30 Mg Capsule.dr 30 MG PO DAILY (Reported) Gabapentin (Gabapentin) 300 Mg Capsule 600 MG PO AM, NOON (Reported) Gabapentin (Gabapentin) 300 Mg Capsule 900 MG PO HS (Reported) Lidocaine (Lidoderm) 700 Mg Adh..patch 1 PATCH TP DAILY (Reported) Lisinopril (Lisinopril) 40 Mg Tablet 40 MG PO DAILY (Reported) Lisinopril (Lisinopril) 20 Mg Tablet 20 MG PO HS (Reported) Metformin (Metformin) 1,000 Mg Tablet 1,000 MG PO BIDWM (Reported) As needed Nitroglycerin SL (Nitroglycerin SL) 0.4 Mg Tab.subl 0.4 MG SL PRN PRN PRN For Chest Pain (Reported) oxyCODONE-Acetaminophen 5-325 mg (oxyCODONE-Acetaminophen 5-325 mg) 1 Each Tablet 1-2 TAB PO BID PRN PRN For Pain (Reported) Followup Plan Disposition: Transfer to [facility], Dr. Michael Hurd accepting attending physician Time spent 1 hour copies to: Amirah Edouard MD, Jeffrey W MD May 03, 2017 15:07
--- NOTE | 2017-05-03 15:30 | NUR ---
Blood transfusion H&H 5.7 and 17.6, made aware, new order to transfused 2units. pt received 2 units of PRBCs today. Vitals charted, no s/s of adverse reactions. Ongoing care.
--- NOTE | 2017-05-03 18:17 | NUR ---
Transfer pt to transfer to [facility]. Report given to [facility]. Patient instructed on transfer by MD. Patient family aware. Awaiting [facility] transport at this time.
--- NOTE | 2017-05-03 19:38 | NUR ---
Transport to Transport here at about 1935 to car pick up driver pt. report given to cashier or checker stock clerk. expander machine operator aware.
== END 2017-05-03 19:30 | disposition short-term general hospital (02) | DRG 689 ==
LOC: SED 19:53 → OBSVTOIN 22:36 → INTOOBSV 22:36 → OSC 22:36 → CCU 05-01 17:51 → PCC 05-02 07:35
PROVIDERS: ADMIT Internal Medicine; ATTEND Internal Medicine
PROC: 30233N1 Transfusion of Nonautologous Red Blood Cells into Peripheral Vein, Percutaneous Approach (ICD-10-PCS; principal; 2017-05-01)
PROC: 30233N1 Transfusion of Nonautologous Red Blood Cells into Peripheral Vein, Percutaneous Approach (ICD-10-PCS; 2017-05-03)
DX: N39.0 Urinary tract infection, site not specified (principal); I21.4 Non-ST elevation (NSTEMI) myocardial infarction; Z68.42 Body mass index [BMI] 45.0-49.9, adult; D62 Acute posthemorrhagic anemia; K92.1 Melena; N17.9 Acute kidney failure, unspecified; I12.9 Hypertensive chronic kidney disease with stage 1 through stage 4 chronic kidney disease, or unspecified chronic kidney disease; E11.22 Type 2 diabetes mellitus with diabetic chronic kidney disease; N18.3 Chronic kidney disease, stage 3 (moderate); E66.9 Obesity, unspecified; B96.20 Unspecified Escherichia coli [E. coli] as the cause of diseases classified elsewhere; E11.40 Type 2 diabetes mellitus with diabetic neuropathy, unspecified; Z79.82 Long term (current) use of aspirin; D50.9 Iron deficiency anemia, unspecified; R33.9 Retention of urine, unspecified; E86.0 Dehydration; Z89.512 Acquired absence of left leg below knee; Z89.511 Acquired absence of right leg below knee; Z79.84 Long term (current) use of oral hypoglycemic drugs; E11.65 Type 2 diabetes mellitus with hyperglycemia